=== PATIENT | female | born 2000 | race Caucasian/White ===

== ENCOUNTER 2022-08-25 21:21 | Emergency (ER) | payer OTHER ==
[2022-08-25 21:29] VITALS: BP 114/71
--- NOTE | 2022-08-25 22:49 | ED Physician Documentation ---
PD HPI HEENT - Stated complaint Stated Complaint: SPITTING UP BLOOD - Chief complaint Chief Complaint: Heent - History obtained from History obtained from: Patient - Additional information Additional information: Patient is a 22-year-old female presenting for evaluation of bleeding from tonsillectomy site. Patient had her tonsils removed [address] Kurtz at [facility]. This evening while in a store parking lot she Noted blood in her mouth. She believes she spit out approximately 2 tablespoons of blood. She is unsure if there were any clots in it. The bleeding has since resolved. She Denies taking a blood thinner.She denies difficulty swallowing. Review of Systems Constitutional: denies: Fever Nose: denies: Congestion Cardiac: denies: Chest pain / pressure Respiratory: denies: Dyspnea GI: denies: Abdominal Pain Musculoskeletal: denies: Back pain Neurologic: denies: Headache PD PAST MEDICAL HISTORY - Past Medical History Past Medical History: No - Past Surgical History Past Surgical History: Yes HEENT: Tonsil/Adenoidectomy - Present Medications Home Medications: Ambulatory Orders Medication Instructions Recorded Confirmed Antibiotics Tablets 08/25/22 oxyCODONE [Roxicodone] 5 mg PO Q6HR PRN 08/25/22 08/25/22 - Allergies Allergies/Adverse Reactions: Allergies Allergy/AdvReac Type Severity Reaction Status Date / Time No Known Drug Allergies Allergy Verified 08/25/22 21:29 - Social History Does the pt smoke?: Yes Smoking Status: Current every day smoker Does the pt drink ETOH?: Yes ETOH Use: Wine, Beer Does the pt have substance abuse?: No - Immunizations Immunizations are current?: Yes - POLST Patient has POLST: No PD ED PE NORMAL - General General: Alert and oriented X 3, No acute distress, Well developed/nourished - HEENT HEENT: Atraumatic, Moist mucous membranes, Other (White eschar present to bilateral tonsillectomy sites,No signs of active bleeding; Patient secretions are clear; Normal speech) - Neck Neck: Supple, no meningeal sign - Cardiac Cardiac: RRR - Respiratory Respiratory: No respiratory distress - Derm Derm: Warm and dry - Extremities Extremities: No edema - Neuro Neuro: Normal speech Results - Vitals Vitals: Vital Signs - 24 hr 08/25/22 21:25 Temperature 36.4 C L Heart Rate 72 Respiratory 18 Rate Blood Pressure 114/71 O2 Saturation 98 Oxygen O2 Source Room air PD MEDICAL DECISION MAKING - ED course Complexity details: re-evaluated patient, d/w patient, d/w family ED course: Patient presenting for evaluation of bleeding from tonsillectomy site. On arrival, bleeding has appeared to stop and there is no signs of any active bleeding. Patient was monitored for least an hour with no Evidence of any bleeding. I did review the case with her ENT. Patient and partner at the bedside were given strict return precautions for any signs/symptoms of bleeding. 2214 - On reevaluation, patient continues to have no bleeding. I had given her ice water to gargle with and the ice water that she spit back out is clear. 2229 - Discussed with her ENT, Dr. Kurtz at [facility]. Reviewed her presentation and current exam. He agrees with plan for discharge and strict return precautions. Departure - Departure Disposition: 01 Home, Self Care Clinical Impression: Post-tonsillectomy hemorrhage Condition: Stable Instructions: ED Tonsillectomy Post Op Bleeding Follow-Up: Carlos Kurtz MD [Physician No Access] - Comments: Please return to the emergency department immediately if your Bleeding reoccurs. Discharge Date/Time: 08/25/22 22:54
== END 2022-08-25 22:54 | disposition home or self-care (01) ==
LOC: ED 21:21
DX: J95.831 Postprocedural hemorrhage of a respiratory system organ or structure following other procedure (principal); F17.200 Nicotine dependence, unspecified, uncomplicated
CPT/HCPCS: 99281

== ENCOUNTER 2022-08-28 17:55 | Outpatient (CLI) | payer OTHER | END 2022-08-28 17:56 | disposition short-term general hospital (02) | LOC: EMS 17:55 | DX: R58 Hemorrhage, not elsewhere classified (principal) | CPT/HCPCS: A0425; A0427 ==